=== PATIENT | female | born 1975 | race Caucasian/White ===

== ENCOUNTER 2019-07-01 10:41 | Outpatient (RCR) | payer MEDICAID, SELFPAY ==
--- NOTE | 2019-07-01 09:05 | BH.SGPN.GN ---
Behaviors/Verbalizations/Mental Status: [] Eye contact is poor. Motor activity is appropriate. Appearance is casual. Speech is Appropriate. Mood is depressed. Affect is flat. Thoughts are linear and logical. No evidence of psychosis. [place] Suicide Risk assessment completed prior to group. Client Response/Progress/Benefit: [] Pt choose not to speak during the group. Attentive at times however appeared overwhelmed with poor eye contact. Group welcomed her to the group. No progress noted as this was pt's first IOP group. Will continue in IOP to maintain safety, increase health coping, and prevent decompensation. Narrative Note: []
--- NOTE | 2019-07-01 10:15 | BH.SGPN.GN ---
Behaviors/Verbalizations/Mental Status: []Client alert and oriented, casually dressed and groomed. Eye contact fair. Motor activity appropriate. Speech within normal limits. Affect constricted, mood depressed. Thoughts linear, logical, no signs of hallucinations or delusions. Client Response/Progress/Benefit: []Pt was a passive participant throughout discussion, however appeared to listen attentively to peers. Showed increased engagement during group activity. Appeared to connect with peers definition for coping which was how we deal with problems. Group noted that coping skills can be healthy and unhealthy. Group worked together to identify unhealthy coping skills which included; substance abuse, avoiding, isolating, lashing out, self-harm, impulsive behavior, risk taking, sex, and eating. Group identified reasons people use unhealthy coping skills to include: seeking control, lack of resources, immediate gratification, past experiences, distractions, habit, easy, self-hate, trauma, and upbringing. Pt seemed to benefit from increased awareness of importance of increasing healthy coping skills and why people fall into trap of utilizing unhealthy coping skills. Pt to continue IOP level of care to maintain safety, improve emotional regulation, and prevent decompensation. Narrative Note: []
--- NOTE | 2019-07-01 11:15 | BH.SGPN.GN ---
Behaviors/Verbalizations/Mental Status: []Client alert and oriented, casually dressed and groomed. Eye contact good. Motor activity appropriate. Speech within normal limits. Affect flat, mood dysthymic. Thoughts linear, logical, no signs of hallucinations or delusions. Client Response/Progress/Benefit: []Client responded well to session, quiet, but taking notes throughout session. Client appeared to connect with the activity from second group and helped the group identify benefits of having a strong foundation of internal and external coping skills. Client helped the group discuss the different categories of coping skills which included distraction, emotional release, grounding, self-love, and thought challenging. Client listened to the examples for each and acknowledged the importance to having a variety of coping skills. Client created a coping skills ?menu? for the five categories of coping skills. Client selected cleaning and organizing, coming to therapy, listening to music, visualization, and scheduling time for herself. Client appeared to benefit from increasing her repertoire of healthy coping skills. Client?s first day of IOP. Will continue IOP tx to prevent decompensation, maintain safety, and increase mood stability. Narrative Note: []
--- NOTE | 2019-07-01 14:00 | BH.COMM_ITS ---
Communication Note - Communication with Client Communication Note: Pt to start IOP today. Due to transportation issues, h olidays, and psychiatrist schedule she will not be able to see IOP psychiatrist till 07/16/19. Pt is followed by her ouptatient psychiatrist at [facility]. Due to the severity of symptoms, frequent re-admissions, and referral by her outaptient team at [facility] for IOP it was decidned to start IOP to prevent any further decompensation and provide more intensive services especially over the holidays.
--- NOTE | 2019-07-01 14:00 | BH.COMM ---
Communication Note - Communication with Client Communication Note: Pt to start IOP today. Due to transportation issues, holidays, and psychiatrist schedule she will not be able to see IOP psychiatrist till 07/16/19. Pt is followed by her ouptatient psychiatrist at [facility]. Due to the severity of symptoms, frequent re-admissions, and referral by her outaptient team at [facility] for IOP it was decidned to start IOP to prevent any further decompensation and provide more intensive services especially over the holidays.
--- NOTE | 2019-07-01 15:43 | BH.COMM ---
Communication Note - Communication with Client Communication Note: Completed initial intake paperwork with patient. No significant changes since pre-admission screening. Worked with pt to complete CSSRS. Reports chronic daily passive suicidal ideations with vague report of potential methods via overdosing on medication, though denies specific plan or intent. Reports in the past month occasional suicidal thoughts with similar methods however no specific plan or intent. Reports only medications she has are her current prescriptions and reports willingness to refrain from purchasing any over the counter medications to maintain safety. Pt reports multiple attempts since age 13 all via overdose of medication. Indicates she does not premeditate attempts and all have been impulsive. Indicates current ability to maintain safety as she is staying with a friend and reports her friend and friend?s grandchildren are major protective factors and motivations to live. Most recent overdose attempt occurring in March 2019 in which pt was hospitalized overnight prior to transfer to inpatient psychiatric unit at [facility] and referred to [facility] program upon discharge. Denies hx of interrupted attempts, or self-injurious acts in the past 3 months. Given recent attempt in past 3 month, pt presents as high risk though is not considered to be an immediate risk or an imminent danger to herself given protective factors which include motivations to live, available supports, connection to counseling, denial of current active SI, plan, or intent, and denial of access to lethal means outside of prescribed medication in which pt reports should would not use in an attempt out of fear of usp consequences to her physical health. Hopeless and angry at current situation however is following through with treatment recommendations as requested by her religious education director and outpatient therapist indicating being future-oriented. Will continue to monitor.
--- NOTE | 2019-07-03 09:02 | BH.SGPN.GN ---
Behaviors/Verbalizations/Mental Status: [Eye contact is fair. Motor activity is appropriate. Appearance is casual, grooming appropriate. Speech is Appropriate rate and tone. Mood is anxious, depressed. Affect is constricted. Thoughts are linear and logical. No evidence of psychosis. Reviewed daily check in sheet and pt indicates SI at a rate of 1/5. Denies plan. Reports intent as 1/5. Pt is new to IOP program and therefore has not established a baseline. Pt open to checking-in with individual therapist to further assess for risk.] Client Response/Progress/Benefit: [Pt receptive of session, engaged throughout and actively listening as group members processed mental health wins and stressors. Pt opted not to share with the group as she indicated not feeling comfortable in large group settings but is working on this. Appeared to benefit from the support and structure of group environment. Progress limited given difficulties in challenging anxious thoughts impacting ability to engage in treatment. Pt recommended continued IOP tx to prevent decompensation, promote application of healthy coping skills and boundary setting, and improve mood stability. ] Narrative Note: []
--- NOTE | 2019-07-03 10:05 | BH.SGPN.GN ---
Behaviors/Verbalizations/Mental Status: []Client alert and oriented, neatly dressed and groomed. Eye contact good. Motor activity appropriate. Speech within normal limits. Affect flat, mood dysthymic. Thoughts linear, logical, no signs of hallucinations or delusions Client Response/Progress/Benefit: []Client responded well to session, quiet, but attentive and taking notes. Client connected with the topic of crisis and listened to examples of potential crises. Client nodded that anything could be a crisis based on the level of stress in a person?s life. Listened to the discussion of how coping with external crisis by using unhealthy coping skills could lead to personal crisis. Group identified unhealthy coping skills to include; isolation, overscheduling, eating too much, and sleeping too much. Group shared it is possible to prevent an external crisis from becoming an internal crisis, but it takes awareness of warning signs. Group identified warning signs for crisis which included; negative thoughts, crying uncontrollably, numbing, lack of motivation, and increased agitation. Client completed a warning signs worksheet, but she declined to share it with the group. Benefited from group by increasing awareness of crisis and personal warning signs. Will continue IOP tx to prevent decompensation, learn healthy coping skills, and improve mood stability. Narrative Note: []
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
--- NOTE | 2019-07-03 16:46 | BH.MTP ---
Master Treatment Plan - Patient Information Program Physician:: Dr. Melissa Okeefe Primary Therapist:: ADAN Scott - Psychiatric Diagnoses Psychiatric Diagnoses:: Bipolar 1 disorder, most recent episode depressed, severe without psychosis; generalized anxiety disorder; Borderline Personality Disorder - Estimated LOS Estimated LOS (in weeks):: 6 Problem/Goal #1 - Problem/Goal #1 Stated Goal:: Client will reduce depressive symptoms, suicidal ideation, feelings of hopelessness, sadness, and anhedonia through Intensive Outpatient Program. Description of Barriers: Client has various psychosocial stressors causing increased stress and impacting her ability to function at baseline. Client has a hx of toxic interpersonal relationships, specifically the relationship with her adult daughter and sister. Client is limited in levels of insight regarding mental health and struggles with application of emotion regulation skills per self-report. Additionally, client reports low self-esteem, negative thinking, poor boundaries, impulsivity, chronic passive suicidal ideation, financial strain, and cognitive distortions that exacerbate symptoms. Functional Impact: Patient is a 43-year-old female with a history of borderline personality disorder, bipolar disorder, PTSD and ERIKA who was referred by her psychiatrist at [facility] to the [facility] program in behavioral health for increasing suicidal ideation. The patient reports a long history of suicidal ideation, several previous attempts, and ongoing impulse control issues. Reports four psychiatric admits during 2019 with the most recent admit being at [facility] in April 2019. Patient currently lives in an apartment with her daughter and her daughter's boyfriend and reports this is very stressful as they do not pay rent and she does not get along well with her daughter. Reports difficulties in setting boundaries and managing emotions during times of increased conflict. Denies Active SI, plan, or intent. Pt currently endorsing symptoms of depression, isolation, hopelessness, worthlessness, and passive thoughts of going to sleep and not waking up. Additionally, indicated ruminating thoughts, irritability, and mood swings. Pt?s current sx are impacting her ability to function at baseline, as well as effecting personal, social, and occupational areas. Goal Relevant Strengths/Supports: Client is approachable, resilient, and motivated to improve her mental health sx management. - Objectives Objective #1 Stated Objective: Pt will decrease depressive symptoms AEB pt?s score on the DSM 5 cross-cutting measure and improve pt?s daily functioning. Interventions: Through groups and individual therapy, pt will be provided with education on cognitive distortions, mistaken beliefs, and identifying and combating negative self-talk. Therapist will assist pt with getting back into the activities she once enjoyed as well as increasing healthy coping strategies. Discharge Criteria: Pt will have met this goal when pt?s score on the DSM 5 cross cutting measure for depression has been decreased and per pt?s report daily functioning has improved. Target Date: 08/12/19 Review Date: 07/29/19 Objective #2 Stated Objective: Client will learn and utilize 2-3 healthy coping strategies to manage depressive symptoms and improve emotion regulation skills. Interventions: Therapist will assist client in learning internal coping strategies to manage depressive symptoms, along with helping client identify triggers. Discharge Criteria: Client will have achieved this goal when can verbalize and has practiced at least 2 healthy coping strategies. Target Date: 08/12/19 Review Date: 07/29/19 Problem/Goal #2 - Problem/Goal #2 Stated Goal:: Reduce overall frequency, intensity, and duration of the anxiety so that daily functioning is not impaired and pt no longer responds with impulsivity. Description of Barriers: Client has various psychosocial stressors causing increased stress and impacting her ability to function at baseline. Client has a hx of toxic interpersonal relationships, specifically the relationship with her adult daughter and sister. Client is limited in levels of insight regarding mental health and struggles with application of emotion regulation skills per self-report. Additionally, client reports low self-esteem, negative thinking, poor boundaries, impulsivity, chronic passive suicidal ideation, financial strain, and cognitive distortions that exacerbate symptoms. Functional Impact: Patient is a 43-year-old female with a history of borderline personality disorder, bipolar disorder, PTSD and ERIKA who was referred by her psychiatrist at [facility] to the [facility] program in behavioral health for increasing suicidal ideation. The patient reports a long history of suicidal ideation, several previous attempts, and ongoing impulse control issues. Reports four psychiatric admits during 2019 with the most recent admit being at [facility] in April 2019. Patient currently lives in an apartment with her daughter and her daughter's boyfriend and reports this is very stressful as they do not pay rent and she does not get along well with her daughter. Reports difficulties in setting boundaries and managing emotions during times of increased conflict. Denies Active SI, plan, or intent. Pt currently endorsing symptoms of depression, isolation, hopelessness, worthlessness, and passive thoughts of going to sleep and not waking up. Additionally, indicated ruminating thoughts, irritability, and mood swings. Pt?s current sx are impacting her ability to function at baseline, as well as effecting personal, social, and occupational areas. Goal Relevant Strengths/Supports: Client is approachable, resilient, and motivated to improve her mental health sx management. - Objectives Objective #1 Stated Objective: Pt will decrease anxiety symptoms AEB pt?s score on the DSM 5 cross-cutting measure and improve pt?s daily functioning. Interventions: Through groups and individual therapy, pt will be provided with education on cognitive distortions, mistaken beliefs, and identifying and combating stress. Therapist will assist pt with calming skills as well as increasing healthy coping strategies. Discharge Criteria: Pt will have met this goal when pt?s score on the DSM 5 cross cutting measure for anxiety has been decreased and per pt?s report daily functioning has improved. Target Date: 08/12/19 Review Date: 07/29/19 Objective #2 Stated Objective: Client will manage moments of increased stress and anxiety by learning to identify 2-3 warning signs and triggers for when becoming overwhelmed and implement 2-3 calming skills and problem solving strategies to realistically addressing worries. Interventions: Therapist will encourage client to use self-awareness strategies and assist client in identifying times of day, or specific thinking patterns indicating potential warning signs/triggers for increased anxiety. Therapist will teach client problem-solving strategies involving defining a problem, brainstorming solutions, selecting and implementing various solutions as well as calming interventions for reducing anxiety. Discharge Criteria: Client will have met this goal when can identify at least 2 warning signs and 2 triggers for increased stress and anxiety. When recognizing warning signs pt will be able to implement 2-3 problem solving and calming strategies for reducing anxiety and realistically addressing worries. Target Date: 08/12/19 Review Date: 07/29/19 Objective #3 Stated Objective: Client will learn and implement 2-3 effective communication skills during times of conflict to empower client to communicate thoughts and feelings rather than suppress emotions or escalate to crisis. Interventions: Therapist will teach client effective communication and conflict resolution skills and will provide homework for client to practice communication skills outside of sessions. Therapist will work with pt to engage his supports in tx process through completion of family/support session. Discharge Criteria: Client will have achieved this objective when reports experiencing increased ability to communicate effectively with supports during times of disagreement or conflict without shutting down or escalating to point of crisis. Target Date: 08/12/19 Review Date: 07/29/19
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
--- NOTE | 2019-07-04 09:41 | BH.COMM ---
Communication Note - Communication with Client Communication Note: Pt to start IOP today. Due to transportation issues, holidays, and psychiatrist schedule she will not be able to see IOP psychiatrist till 07/16/19. Pt is followed by her ouptatient psychiatrist at [facility]. Due to the severity of symptoms, frequent re-admissions, and referral by her outaptient team at [facility] for IOP it was decidned to start IOP to prevent any further decompensation and provide more intensive services especially over the holidays.
--- NOTE | 2019-07-04 15:38 | BH.COMM_ITS ---
Communication Note - Communication with Client Communication Note: Cancelled IOP through transportation this AM. No reason given. Unable to contact as pt currently has not phone. Informed pt's protective services case worker of cancellation and upcoming appt for IOP on 07/07/19
--- NOTE | 2019-07-07 09:05 | BH.SGPN.GN ---
Behaviors/Verbalizations/Mental Status: [ Eye contact is good. Motor activity is appropriate. Appearance is casual, grooming appropriate. Speech is Appropriate rate and tone. Mood is agitated, depressed. Affect is congruent. Thoughts are linear and logical. No evidence of psychosis. Reviewed daily check in sheet and pt reports SI at a rate of 1/5, denies plan, and indicates intent as a 1/5 as of this date. Per pt, this is consistent with her baseline. Pt reports willingness to follow-up with this therapist to further assess for risk.] Client Response/Progress/Benefit: [Pt receptive to session, mostly a passive participant but willing to process with the group when encouraged by therapist. Pt indicated current emotion as ?overwhelmed? and discussed that this is due to stress related to her current living situation and expressed ?the weekend was very stressful?. Declined to share further but appeared to benefit from supportive feedback provided by group AEB nodding and expressing connecting to others. Pt progress limited given difficulties in engaging in group discussion and report of ongoing mental health sx. Pt recommended continued IOP tx to prevent decompensation, promote ongoing application of healthy coping skills, and further improve emotion regulation.] Narrative Note: []
--- NOTE | 2019-07-07 09:14 | BH.NA_ITS ---
Physical Data - Vital Signs Temperature: 98.0 F Pulse Rate: 76 Respiratory Rate: 18 Blood Pressure: 132/80 - Height/Weight Height: 1.63 m Weight:: 120.202 kg Weight in Pounds: 265.0 lbs Current Medication Compliance - Medication Compliance Do you take your medication as prescribed?: Yes Nutritional History - Appetite Nutritional Instructions:: If client shows signs of a swallowing problem, weight change of 10 pounds or more in the last month, or is on a diabetic diet, the physician will review and request a dietitian consult, as appropriate. All unintentional weight loss will be referred to the physician for decision on need for dietitian consult. Describe your appetite:: Good Have you noticed a change in your eating habits lately?: No Functional Assessment - Sleep Pattern Describe any problems with sleeping: Client states she has been sleeping a lot. Client states she was only awake yesterday for about 3 hours, states she slept the rest of the day. Client says she sleeps as much as possible to cope. - Activities Motor Activity:: Functional Sensory/Communication Assess - Communication Problems Do you have difficulty understanding what people are saying?: No Medical Problems/History - Cardiac Conditions Cardiovascular: Hypertension - Gastrointestinal Conditions Gastrointestinal: Other (See comments) Comments:: GERD, irritable bowel syndrome - Musculoskeletal Conditions Musculoskeletal: Arthritis Surgical History - Surgical History Have you had any surgeries? If so, list type and date:: Yes - 4 back surgeries, right ankle, left knee scope, parital hysterectomy Substance Abuse - Substance Abuse Please describe substance abuse in the last 30 days:: Client denies all past or present alcohol, tobacco, or drug use when asked. Mental Status Summary - Mental Status Significant Findings/Observations on Appearance and Mood:: Client alert and oriented x 4. Client casually groomed. Client cooperative with assessment but with flat affect. Client with fair eye contact during assessment and voice rate and volume normal. Client's speech clear and coherent, sometimes rapid at times. Client appears moderately depressed and mildly anxious. Client with normal processing during conversation. Client denies delusions or hallucinations. Client states she often has passive suicidal thoughts but not action plan, but states she is a very impulsive person. Client has good attention and concentration during assessment. Suicide Assessment - Suicidal Ideation Are you currently or have you been suicidal in the past?: Yes - client states she has passive suicidal thoughts a lot Suicidal Intentional Rating Scale (SIRS): Suicidal thoughts (past) - Client states she has suidical thoughts a lot but has no active plan. This nurse discussed client's response with client's therapist, Anita., Current suicidal thoughts/No plan/Contracts for safety Physician Notification: If Active suicidal thoughts/Will not contract for safety is checked, contact physician and document in the Physician Notification section below. Past Psychiatric History - MH Treatment Hx Past Psychiatric Medications:: Depakote- client states she had to be taken off of it due to high liver enzymes. Client also states with her current Seroquel, she has had some high blood sugars and had some hemoglobin A1C checks with her primary care doctor in the past. Client does not remember any lab values. Age of first mental health symptoms: Client very vague when asked about her history of depression and bipolar, states she has had them for years. When asked if more than 5-10 years, client states yes. Client also states she has some kind of personality disorder but states I don't remember what it's called exactly. Describe (age, circumstance, etc) any past hospitalizations: Client was hospitalized at [facility] in March 2019. When asked if client has had other hospitalizations, client states a lot. Client unable to give number of hospitalizations. When asked if client has had other hospitalizations this year, client states a lot. Client does state all her hospitalizations have been because of suicidal attempts. Current providers for mental health treatment (counselor, psychiatrist, nurse case management, etc.): Client goes to [facility] in [place] for counseling, psychiatry, and has a showcase maker. Fall Risk Assessment - Age Age: Less than 60 - Mental Status Mental Status: Willing & able to ask for assistance when needed - Physical Status Physical Status: No problems - Impairments Impairments: None - Elimination Elimination: Continent AND independent - Gait or Balance Gait or Balance: Walks independently - Hx of Falls History of falls in the past 6 months: No known history - Medications/Substances Psychotropics:: Antidepressants, Antipsychotics, Antihistamines (e.g. Benadryl) Medications/substances used within the past 24 hours or ordered to administer: 3 or more of the medications/substances listed above - Total Score Total Points:: 2 RN Summary of Impressions - Impressions Recommendations: Include psychiatric and medical issues, treatment planning recommendations, and discharge planning needs. Impressions: Psychiatric Issues: Client states history of depression, PTSD, bipolar, and states a personality disorder but unsure what - Level of Care How do the client's current symptoms and functional deficits support need for this level of care?: Client was hospitalized in March 2019 for suicide attempt. Client vague about the onset of symptoms that lead to hospitalization, client states she has been hospitalized a lot and states she struggles with depression on a daily basis. Client states she is trying to sleep all the time to avoid coping with her problems. Client states she has feelings of anhedonia, feelings of being overwhelmed, irritability. Client states that her current stressors are her relationship with her daughter, financial concerns, lack of having her own phone. Client states she has passive SI often, but states she does not have a plan. Client with mostly flat affect during conversation. IOP will promote gains and prevent further decompensation while providing social support and skills training.
[2019-07-07 10:16] VITALS: BP 132/80; PULSE 76; RESP 18; TEMP 36.7
--- NOTE | 2019-07-07 11:15 | BH.SGPN.GN ---
Behaviors/Verbalizations/Mental Status: []Client alert and oriented, neatly dressed and groomed. Eye contact fair. Motor activity appropriate. Speech within normal limits. Affect flat, mood depressed. Thoughts linear, logical, no signs of hallucinations or delusions. Client Response/Progress/Benefit: []Client willing to participate in activity and provided some input during discussion. Client did well to work with the group and actively listen as others provided suggestions/feedback. Client agreed with peers that the group?s attitude toward the activity negatively impacted their ability to succeed. Client engaged in discussion reviewing positive and negative forces impacting life and mental wellness. Client identified personal positive forces that aid in progressing toward mental health goals include: babysitting which gives client a purpose, her supports, and client?s willingness to learn. Client indicated personal negative forces to include: lack of impulse control, low self-esteem, and difficulty managing mental health symptoms. Client seemed to benefit from increased awareness of personal positive and negative forces in life and impact they have on mental health and wellness. Client to continue IOP level of care to prevent decompensation of depressive symptoms and to increase emotional regulation skills. Narrative Note: []
--- NOTE | 2019-07-07 11:15 | BH.SGPN.GN ---
Behaviors/Verbalizations/Mental Status: []Eye contact is poor. Motor activity is appropriate. Appearance is casual. Speech is Appropriate. Mood is depressed. Affect is flat. Thoughts are linear and logical. No evidence of psychosis. Client Response/Progress/Benefit: []Pt was a passive participant in group as evidenced by pt providing no input during group discussion, however appeared to attentively listen to others. Group worked together to come up with common negative forces in their lives which can hold them back from growth. Negative forces included: toxic relationships, negative thoughts, low motivation, and poor boundaries. Group then worked together to identify common positive forces which help us grow. Theses included: Healthy coping skills, positive support, self-care, positive self-talk and challenging negative thoughts. Pt was attentive during psychoeducation on the importance of utilizing many aspects of positive forces to help one grow. Benefited from group with increased insight and awareness on the impact of negative and positive forces on mental wellness. Pt to continue IOP to maintain safety, improve emotional regulation, and prevent decompensation.
--- NOTE | 2019-07-07 12:34 | BH.COMM ---
Communication Note - Communication with Client Communication Note: Therapist met with pt to check-in as pt had indicated SI at a rate of 1/5 and intent at 1/5 when filling out her daily symptom tracker this morning. Pt indicates chronic passive SI but denies active SI, plan, or intent. Reports increase in stress related to ongoing tension in her relationship with her daughter. Indicated that this has impacted current SI levels but that she is not a risk to herself and feels able to maintain safety at this time. Future oriented and reports plans to attend group tomorrow. Is aware of crisis resources available and willing to reach out for if no longer feeling capable of maintaining safety.
--- NOTE | 2019-07-08 09:02 | BH.SGPN.GN ---
Behaviors/Verbalizations/Mental Status: []Client alert and oriented, casually dressed and groomed. Eye contact fair. Motor activity appropriate. Speech within normal limits. Affect flat, mood dysthymic. Thoughts linear, logical, no signs of hallucinations or delusions. Reviewed client?s symptom tracker, client had 3/5 for thoughts of suicide and 1/5 for risk for suicide. Client will meet with her individual therapist today and client will further be assessed for safety. Client Response/Progress/Benefit: []Client responded somewhat well to session, quiet, but attentive and listening to peers. Client declined to share during her check-in. Client appeared depressed and withdrawn. Client?s individual therapist will be informed of client?s mood and symptom tracker score. Appeared to benefit from coming to group today rather than isolating. Will continue IOP tx to prevent further decompensation and increase emotional regulation skills.? Narrative Note: []
--- NOTE | 2019-07-08 10:17 | BH.SGPN.GN ---
Behaviors/Verbalizations/Mental Status: []Eye contact is good. Motor activity is appropriate. Appearance is casual. Speech is Appropriate. Mood is dysthymic. Affect is constricted. Thoughts are linear and logical. No evidence of psychosis. Client Response/Progress/Benefit: []Participated throughout group discussions AEB taking notes and listening actively. Engaged during psychoeducation portion reviewing fixed mindset and willing to ask for clarification as needed. Expressed relating to the examples provided by fellow participants throughout. Pt worked with group to identify how a fixed mindset can impact mental health which included: decreased hope, giving up when faced with a setback, not asking for help, low self-esteem, and isolation/avoidance. Pt identified one fixed thought she has as ?things are never going to get better? and ?I can?t do this?. She did well to note the impact of this thought and indicated it makes her doubt her self-worth, impacts her willingness to communicate with supports, and leads to hopelessness. Recognized that this fixed thought results in maintaining symptoms of depression and has led to isolation in the past. Benefited from group by increasing awareness of how one's mindset impacts mental health. Pt to continue IOP level of care to increase utilization of healthy coping skills, challenge distorted thoughts, and prevent decompensation. Narrative Note: []
--- NOTE | 2019-07-08 23:14 | BH.MDN ---
Multi-Disciplinary Note - Note 45-min Individual Time Started:: 11:36 Date: 07/08/19 Purpose of session/treatment goals addressed:: Purpose of this session was to assess for risk and safety plan with pt as therapist was informed that pt had indicated increased suicidal ideation during process group. Eye Contact:: Good Motor Activity:: Appropriate Appearance:: Casual Speech:: Appropriate Mood:: Irritable, Depressed Affect:: Congruent Thoughts:: Linear, Logical, No evidence of hallucinations/delusions noted Staff Interventions:: Therapist asked open-ended and furthering questions to elicit information regarding pt current sx and stressors resulting in increase in mental health sx. Gave supportive feedback and empathic responses as pt process current frustrations. Completed Suicide Risk assessment and assessed fr current risk and protective factors. Aided pt in completing a safety plan for the and implemented DC techniques to promote healthy change behaviors. Client Response:: Pt receptive of session, indicated feeling overwhelmed and agitated on this date. Noted that she had expressed increased suicidal ideation during process group more out of frustration and feeling overwhelmed, than actual suicidal thoughts. Pt expressed ?I don?t really want to ?really I just want to take a bunch of pills to sleep so that I?ll feel better in the morning?. Receptive of discussion regarding potential consequences of doing so on her mental and physical health. Able to identify that sleep will temporarily numb her from current stressors/frustrations but not resolve the actual issues. Shared current stressors as ongoing tension in the relationship with her daughter whom is 19. Pt shared that they struggle to communicate without conflict despite caring for one another. Discussed stress related to finances and her daughter not working. Pt able to work with therapist to further identify strategies for managing current frustrations so as to prevent crisis escalation. Pt shared normally she would spend time with her best friend Jo, however Jo is currently out of town for the Holidays. Indicated that she knows the relationship with her daughter is often toxic but struggles to set boundaries. Willing to create a safety plan for the New and pt identified finding time to spend away from her daughter and practice selfcare would be beneficial. Shared plans to go to a separate room in the house and listen to music and clean. Pt notes ability to maintain safety and is looking forward to as her friend and their grandchildren will be home from vacation. Reports plans to attend group on , 07/10/18. Risks/Concerns:: Pt reporting increased SI during process group on this date. Noted SI as a 3/5 and current intent to be a 1/5. Upon further assessment however, pt denies active SI, plan, or ntent. Reports passive thoughts of taking pills to sleep but denies desire to do so with intent of self-harm. Willing to safety plan and reports ability to maintain safety. Future oriented. Progress Toward Goals/Plan:: Some regression. Pt reporting increased mood dysregulation due to external stressor of her daughter staying with her. Shared that she is overwhelmed and struggling to maintain calm or prevent from engaging in a physical altercation or impulsive or self harming behaviors. Appears to focus on external locus of control which may be impacting her current progress and ability to cope with stressors. Reports ability to maintain safety and able to identify some insight regarding how current thoughts and behaviors maintain mental health state and depression. Pt recommended continue IOP tx to maintain safety, promote application of distress tolerance skills, and prevent decompensation. Time Stopped:: 12:35
--- NOTE | 2019-07-10 23:24 | BH.COMM_ITS ---
Communication Note - Communication with Client Communication Note: Pt in attendance for IOP group on this date and indicated doing well. This was further evidenced by decreased reports of suicidal ideation on this date, as pt indicated scores as 1/5 compared to previous session in which it was 3/5. Additionally reports future orientation as she plans to spend the evening with her bestfriend. However, prior to leaving group for the day, pt handed financial accounting analyst a note for this therapist. Note indicated that pt has been st ruggling with impulsive thoughts and has been counting pills; however, note was vauge and did not indicate current SI or whether this is an active plan. Due to lack of clarity of ideation and intent, as well as inabilty to contact client or her leather case finisher at [facility] police dept was contacted to complete a safety check.
--- NOTE | 2019-07-10 23:54 | BH.COMM_ITS ---
Communication Note - Communication with Client Communication Note: Pt Printed [employer] Layout Taper from [facility] contacted this therapist to discuss pt's mental health tx history and tx goals. Discussed plans to meet with pt on this date to further assess risk. Will follow-up with this therapist regarding any concerns
--- NOTE | 2019-07-14 16:49 | BH.COMM_ITS ---
Communication Note - Communication with Client Communication Note: Therapist met with pt to check-in as pt had indicated SI at a rate of 2/5 and intent at 2/5 when filling out her daily symptom tracker this morning. Pt indicates chronic passive SI but denies active SI, plan, or intent. Unable to identify baseline and indicates it's always all over the place. Noted that if she has increased SI during process group she will let individual therapist know if she is able to maintain safety. Reports ongoing stress rela marivel to her relationship with her daughter and difficulty in setting boundaries. Additional stressor as finances; however, pt has additional protective factor compared with prior week as her close friend whom pt often stays with is back in town. Indicated that she is not a risk to herself and feels able to maintain safety at this time. Future oriented and reports plans to spend time with friend this evening. Is aware of crisis resources available and willing to reach out for if no longer feeling capable of maintaining safety.
== END 2019-07-08 23:59 ==
LOC: BHIOP 10:41
PROVIDERS: Family Provider Internal Medicine; PCP Internal Medicine; Referring Provider Psychiatry & Neurology Psychiatry; Visit Provider Psychiatry & Neurology Psychiatry
DX: F32.2 Major depressive disorder, single episode, severe without psychotic features (principal); F41.1 Generalized anxiety disorder; F60.3 Borderline personality disorder
CPT/HCPCS: H0035; H2012; H2020; T1002; 90834; 90837

== ENCOUNTER 2019-07-10 09:00 | Outpatient (RCR) | payer MEDICAID, SELFPAY ==
[2019-07-09 01:09] VITALS: BP 132/80; PULSE 76; RESP 18; TEMP 36.7
--- NOTE | 2019-07-10 09:03 | BH.SGPN.GN ---
Behaviors/Verbalizations/Mental Status: []Client alert and oriented, casually dressed and groomed. Eye contact good. Motor activity appropriate. Speech within normal limits. Affect constricted, mood depressed and anxious. Thoughts linear, logical, no signs of hallucinations or delusions. Client Response/Progress/Benefit: []Pt was an engaged participant in group discussion. Emotion for today is overwhelmed. 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 Pt reported another positive was getting a phone call from one of sons on [place] who told her he loved her. Pt stated she had been struggling badly on [employer] until she talked with her support people. 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 Pt reported prior to talking with supports she was having impulsive thoughts. Pt stated current stressor is finding out her daughter is . Progress could be hindered AEB pt's mood is dependent on external situations and people. Continued IOP tx recommended to maintain safety, improve emotional regulation and prevent decompensation. Narrative Note: []
--- NOTE | 2019-07-10 10:05 | BH.SGPN.GN ---
Behaviors/Verbalizations/Mental Status: []Client alert and oriented, neatly dressed and groomed. Eye contact good. Motor activity appropriate. Speech within normal limits. Affect flat, mood dysthymic. Thoughts linear, logical, no signs of hallucinations or delusions. Client Response/Progress/Benefit: []Client was an active participant throughout session, contributing to discussion and taking notes. Commented on the quote sharing paying attention to each step made towards progress ?can make you see you aren?t where you started.? Group worked together to define goals and identify the benefits of developing goals which included: increase confidence, seeing progress, reducing black and white thinking, and sense of purpose. Client shared for her goal setting means having something to look forward to. Group also discussed short-term and long-term goals as well as the benefits of the two types. Attentive and contributing during education on developing SMART goals. Benefited from increase awareness of goal-setting methods. Will continue in IOP to prevent decompensation, improve emotional regulation, and maintain safety. Narrative Note: []
--- NOTE | 2019-07-10 11:10 | BH.SGPN.GN ---
Behaviors/Verbalizations/Mental Status: [Client alert and oriented, casually dressed and appropriately groomed. Eye contact good. Motor activity appropriate. Speech within normal limits. Affect congruent, mood agitated and depressed. Thoughts linear, logical, no signs of hallucinations or delusions.] Client Response/Progress/Benefit: [Pt attentive throughout, contributed some thoughts to discussion which indicates progress. Reported relating to materials discussed and engaged in creating own mental health SMART goal. Pt identified goal is to challenge herself to stay in the same room as others for at least 30 minutes 2x daily over the next week. Pt reported this goal as beneficial by improving relationships and decreasing isolation. Pt identified potential barriers to accomplishing goal to include: ?my own mind overrides the positives?. Pt reported she will overcome barriers by engaging in positive self-talk at least twice a day. Seemed to benefit from identifying a SMART goal and coming up with strategies to overcome potential barriers. Pt to continue IOP to increase healthy coping skills, improve emotional regulation and depression management, and prevent decompensation.] Narrative Note: []
--- NOTE | 2019-07-14 09:03 | BH.SGPN.GN ---
Behaviors/Verbalizations/Mental Status: []Client alert and oriented, neatly dressed and groomed. Eye contact good. Motor activity appropriate. Speech within normal limits. Affect flat, mood depressed Thoughts linear, logical, no signs of hallucinations or delusions. Reviewed client?s symptom tracker. Client had 2/5 for thoughts of suicide and 2/5 for risk of suicide. Client's scores were within client's baseline and client was future oriented throughout session. Client Response/Progress/Benefit: [] Client responded well to session, quiet at first, but then participating when prompted. Client reports feeling overwhelmed today due to ongoing stressors with her daughter. Client and her daughter have a history of a turbulent relationship and client shared we need to figure things out. Client shared she is also stressed about money today. 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 Appeared to benefit from connecting with peers and reflecting on the positive from her weekend. Progress is variable based on the day/week as client's mood often correlates with external situations. Will continue IOP tx to prevent decompensation and increase the use of internal coping skills. Narrative Note: []
--- NOTE | 2019-07-14 10:17 | BH.SGPN.GN ---
Behaviors/Verbalizations/Mental Status: [Client alert and oriented, casually dressed and groomed. Eye contact fair to good. Motor activity appropriate. Speech within normal limits. Affect congruent, mood agitated, depressed. Thoughts linear, logical, no signs of hallucinations or delusions. ] Client Response/Progress/Benefit: [Client a semi-active participant AEB engagement in group activity and providing some input during discussion portion of session, though remaining mostly passive during discussion portion. Actively listening and taking notes throughout. Client worked with group to define resilience, indicating agreement with definition provided by fellow participants. Client able to make connections between activity and barriers/supports to development of a resilient lifestyle. Client agreed with peers that one can learn to become more resilient throughout life. Client able to work with group to discuss benefits of resilience on mental health which included: increased self-confidence, increased ability to manage adversity, and increased ability to find different solutions to setbacks. Progress in willingness to work in small groups to identify benefits of resilience, as well as improved ability to identify self-sabotaging behaviors and reach out to supports for help. Recommended continued IOP tx to maintain safety, promote healthy change behaviors, improve insight and mental health sx management, as well as prevent decompensation.] Narrative Note: []
--- NOTE | 2019-07-16 10:20 | BH.SGPN.GN ---
Behaviors/Verbalizations/Mental Status: [Client alert and oriented, casually dressed and groomed. Eye contact fair to good. Motor activity appropriate. Speech within normal limits. Affect congruent to topic being discussed, mood irritable, depressed. Thoughts linear, logical, no signs of hallucinations or delusions.] Client Response/Progress/Benefit: []Pt mostly passive participant though attentive participant AEB pt taking notes and actively listening throughout. Pt able to connect with discussion on the negative impact of defining self by mental illness. She discussed struggling with viewing herself in a negative light as a result of the language she has heard surrounding mental illness. Group identified social stigma can come from how the media, our thoughts, and upbringing portray mental illness. Group identified media and society portray mental health as: dangerous, negative, unworthy, abnormal, and that it means something is wrong with you. Pt reported societal stigma made her feel worthless and resulted in not seeking help when needed. Pt seemed to benefit from increased awareness of how societal and internal mental health stigma can impact functioning. Pt progressing with increased input in group though continues to struggle with skill application outside of tx environment. Pt to continue IOP level of care to continue use of healthy coping skills, reduce mental health sx severity, and prevent decompensation. Narrative Note: []
--- NOTE | 2019-07-16 11:20 | BH.SGPN.GN ---
Behaviors/Verbalizations/Mental Status: []Client alert and oriented, casually dressed and groomed. Eye contact fair. Motor activity restless. Speech within normal limits. Affect constricted, mood depressed. Thoughts linear, logical, no signs of hallucinations or delusions. Client Response/Progress/Benefit: []Client passive participant AEB pt providing limited input however appeared to actively listen to others throughout session. Engaged in activity about facts and statistics of mental illness. Group identified the benefits of addressing stigma which included: increased self-confidence, takes some of the power away from stigma, increases personal and social awareness, and increases validation. Group brainstormed strategies to combat social and perceived stigma which included: education others, no longer using negative labels about mental illness, being open about mental health, and don't reinforce stigma. Client seemed to connect with strategy of talking about mental illness openly with others as a way to reduce mental health stigma. Appeared to benefit from increasing awareness of strategies to combat stigma. Will continue IOP tx to increase consistent application of coping skills, improve emotional regulation, and prevent decompensation. Narrative Note: []
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
--- NOTE | 2019-07-16 13:27 | BH.PSY.EVA_ITS ---
Initial Treatment Plan - Patient Information Visit Information: ADMISSION DATE: EXPECTED LOS: 4-6 weeks - Problems/Symptoms Problem #1:: Depression Symptom:: sadness, suicidal ideation, hypersomnia, fatigue, hopelessness, worth lessness, anhedonia Problem #2:: Impulsivity and distress intolerance Symptom:: Self-harm, chronic suicidal ideation and attempts Problem #3:: Anxiety
--- NOTE | 2019-07-16 16:06 | BH.MDN_ITS ---
Multi-Disciplinary Note - Note 30-min Individual Time Started:: 09:45 Date: 07/16/19 Purpose of session/treatment goals addressed:: The purpose of today's session was to assess current symptoms, stressors, and treatment goal progress. Another purpose was to aid pt in identifying heathy communication and conflict resolution skills to address concerns impacting current mental health status. Eye Contact:: Good Motor Activity:: Appropriate Appearance:: Casual Speech:: Appropriate Mood:: Irritable, Depressed Affect:: Congruent Thoughts:: Linear, Logical, No evidence of hallucinations/delusions noted Staff Interventions:: Therapist asked open-ended and furthering questions to elicit information regarding current symptoms, stressors, and tx goal progress. Provided supportive feedback and empathic responses as client discussed recent stressors, desires to engage in safety behaviors, and anxieties about communicating concerns with her supports. Discussed conflict resolution skills and prs/cons of communicating vs. avoidance. Therapist applied PA techniques to promote healthy change behaviors. Client Response:: Pt receptive of session, actively engaged throughout and openly discussed current stressors impacting mental health and treatment progress. She indicated that her friend Jo, whom she has been staying with, informed her on Sunday that pt may not be able to stay there any longer for financial reasons. Pt shared that this felt unexpected and ?out of the blue?, indicating that she would be willing to help with some of the financial obligations should she be able to remain in the house. Pt currently has her own apartment which she pays for but pt?s daughter and her daughter?s fianc? live there and pt often reports tension between she and her daughter. Shared feeling her mental health would decline if she were to live with her daughter all the time but feels she cannot kick her daughter out as she is and not currently working, therefor would not be able to provide for herself. Pt receptive on discussing boundaries and ways to support her daughter without taking on her responsibilities. Pt shared anxiety about further discussing living arrangements with her friends as the topic has not been brought up since Sunday and pt fears if she were to bring it up her friend would follow through on kicking her out. Pt able to identify consequences of avoiding on her friendship and mental health as well as benefits of discussing this with her supports and problem solving solutions for ensuring she is supported while still respecting the boundaries and needs of her supports. Reports plans to re- approach the topic this afternoon. Risks/Concerns:: No risks or concerns noted. Pt denies any active SI, plan, or intent as of this date, 07/16/18. She is future oriented and willing to reach out to crisis should she feel unable to maintain safety at anytime. Progress Toward Goals/Plan:: Progress noted. Pt continues to indicate difficulties in overall ability to manage mental health triggers and often struggles in externalization of stressors; however, has done well to increase awareness of doing so. Additionally, pt continues to report chronic passive SI when feeling overwhelmed and often uses sleeping and avoidance to prevent dealing with current stressors; however, she was able to additionally identify impact of avoidance on reinforcing anxiety and sx of depression. Reports willingness to discuss concerns with her supports despite anxiety about doing so and noted willingness to discuss boundaries with her daughter. Reported ability to maintain safety today which is an additional area of progress as pt often struggles to recognize ways to cope on her own. Continues to report mood instability and feeling exhausted due to current stressors. Recommended continued IOP tx to improve mood stability, increase healthy communication and conflict resolution, and prevent decompensation.
--- NOTE | 2019-07-21 09:05 | BH.SGPN.GN ---
Behaviors/Verbalizations/Mental Status: []Client alert and oriented, casual dress, hygiene tended to. Eye contact good. Motor activity appropriate. Speech within normal limits. Affect constricted, mood dysthymic. Thoughts linear, logical, no signs of hallucinations or delusions. Reviewed client?s symptom tracker, no signs of suicidal ideation, plan, or intent as of today. Client Response/Progress/Benefit: []Patient responded well to session as evidenced by openly sharing thoughts and feelings and attentive to others. Pt reported this weekend she babysit which she stated was a great time. Pt stated additional mental health positive was spending time with her daughter and being able to get along. Pt reported often times when she is around her daughter it results in a fight. Pt reported she is currently stressed because can't get ahold of her land lord due to losing her phone number. Pt receptive to ideas about how to reach her landlord. Pt progress is variable due to her mood often being determined about external events in her life. Pt to continue IOP to improve emotional regulation, improve healthy coping and prevent decompensation. Narrative Note: []
--- NOTE | 2019-07-21 10:20 | BH.SGPN.GN ---
Behaviors/Verbalizations/Mental Status: []Eye contact is good. Motor activity is appropriate. Appearance is casual. Speech is Appropriate. Mood is depressed. Affect is flat. Thoughts are linear and logical. No evidence of psychosis. Client Response/Progress/Benefit: []Client was an active participant in group activity and attentive during discussion. Client often nodding to comments made by peers and taking notes. Group identified several definitions of pitfalls which included; engaging in choices that keep us stuck, unexpected dangers, and unforeseen difficulty. The group discussed the consequences of continuing to fall into pitfalls or not address pitfalls which included; use of unhealthy coping skills, increased mental health symptoms, and loss of employment or relationships. Client stated ignoring warning signs and pitfalls can lead to hospitalization. Attentive during psychoeducation on the vicious cycle that can occur if one does not cope in healthy ways. Group worked together to identify what keeps us stuck or vulnerable to pitfalls which included; lack of resources, stigma, feeling uncomfortable, it is hard to go against the norm, and difficulty seeing the big picture. Benefited from increased awareness on the impact that pitfalls can have on mental health. Progress noted in client?s report of mood stability over the weekend. However, client continues to struggle with applying internal coping skills and client often relies on external support for emotional regulation. Will continue IOP tx to prevent decompensation and improve emotional regulation skills. Narrative Note: []
--- NOTE | 2019-07-21 11:21 | BH.SGPN.GN ---
Behaviors/Verbalizations/Mental Status: [Client alert and oriented, casually dressed and groomed. Eye contact good. Motor activity appropriate. Speech within normal limits. Affect congruent, mood anxious, dysthymic. Thoughts linear, logical, no signs of hallucinations or delusions.] Client Response/Progress/Benefit: []Client receptive of session, engaged throughout AEB client actively listening during discussion and taking notes. Listened and processed activity with group and connected it to overcoming personal pitfalls in life. Client completed a worksheet where pt identified personal pitfalls impacting mental health progress. Identified pitfalls as: impulsivity, communication, giving up, self-hate, depression, poor boundaries, and loneliness. Client agreed that with awareness and use of healthy coping skills, it is possible to prevent or better manage pitfalls. Discussed this has been difficult for her lately due to negative thoughts and feeling unsupported by others. Shared wanting to work on this area. Attentive during psychoeducation on strategies to overcome pitfalls. Client stated she will work on pitfall of impulsivity by reaching out and speaking to someone before reacting. Benefited from identifying personal pitfalls and strategies to overcome these pitfalls, as well as support provided by group. Progress noted as client reported improved mood on this date. Will continue IOP tx to reduce depression, promote healthy change behaviors, and prevent decompensation. Narrative Note: []
--- NOTE | 2019-07-22 11:39 | BH.MDN_ITS ---
Multi-Disciplinary Note - Note 60-min Individual Time Started:: 09:21 Date: 07/22/19 Purpose of session/treatment goals addressed:: The purpose of this session was to assess current symptoms, stressors, and treatment progress. Another purpose was to address factors impacting pt overall self-worth. Additional topics included: boundaries and self-care Eye Contact:: Good Motor Activity:: Appropriate Appearance:: Casual Speech:: Appropriate Mood:: Depressed Affect:: Congruent Thoughts:: Linear, Logical, No evidence of hallucinations/delusions noted Staff Interventions:: Therapist asked open ended and furthering questions to elicit information regarding client current symptoms, stressors, and treatment history. Provided supportive feedback and empathic responses as client discussed current stressors impacting mental health symptoms. Aided pt in identifying and challenging negative self-talk messages. Used WI techniques to promote healthy change behaviors and aid Pt in identifying self-talk messages to improve sense of self-worth. Continued to provide education on importance of boundary setting in maintaining self-care. Client Response:: Client was receptive of meeting with this therapist and remained engaged throughout session, openly discussing thoughts, feelings, and concerns. Pt shared feeling ?exhausted and drained? on this date. Indicated that this is due to ongoing difficulties in setting boundaries with her daughter, as well as being given additional responsibilities while staying with her friend, Jo, without her knowledge. Pt indicated that her friend had assumed pt would watch the grandchildren without first consulting pt. Expressed feeling disrespected and taken advantage of but was able to sit down and discuss concerns with her friend without it becoming an additional stressor. Pt expresse d this was progress as she sometimes worries about addressing concerns with her friend out of fear of being kicked out of the house. Pt and therapist discussed impact of her current boundaries on her mental health and ability to implement self-care. Shared insight that she takes on other?s problems and spends time caring for other?s responsibilities that she does not give herself any time for self-care. Able to identify the impact this has had on maintaining depression, however continues to indicate not knowing or feeling she deserves to spend time on herself. Willing to work with therapist on challenging distortions related to negative image of self. Pt reports believing she has never told herself an affirmational statement as she was not taught to say kind things to herself. Shared struggling to identify things she likes about herself outside of care for others. Pt expressed wanting to begin improving her self-talk willingness to begin implementing at least on affirmation daily. Risks/Concerns:: No risks or concerns noted. Pt continues to report chronic, passive thoughts of wanting to sleep and not wake up; however, denies any active SI, plan, or intent as of this date. 07/22/19. Future oriented and reports an ability to maintain safety at this time. Progress Toward Goals/Plan:: Limited progress noted. Pt shared increased insight into her own mental health symptoms, specifically impact of poor boundaries and negative self-talk statements on maintaining depression however continues to externalize factors impacting her mental health. Discussed increased difficulty in managing emotions due to poor boundaries and taking on other?s responsibilities. Is able to recognize this but struggles with implementing identified boundary setting skills. Noted that she continues to struggle with agitation, depression, and ongoing difficulties with distorted thinking patterns and communicating with supports. Is more open to begin working on improving thought challenging and use of self-care. Recommended continued IOP tx to reduce sx severity, increase healthy skill application, and prevent decompensation. Time Stopped:: 10:22
--- NOTE | 2019-07-24 09:05 | BH.SGPN.GN ---
Behaviors/Verbalizations/Mental Status: [] Eye contact is good. Motor activity is appropriate. Appearance is casual. Speech is Appropriate. Mood is depressed. Affect is flat. Thoughts are linear and logical. No evidence of psychosis. Reviewed daily check in sheet and pt reports 2/5 for suicidal ideations and 1/5 for intent. Therapist notified and this is pt's baseline. Client Response/Progress/Benefit: [] Pt did not participate in group discussion and declined to share. Daily symptoms notes 4/5 for anxiety, 3/5 for panic, 2/5 for hopelessness. She was attentive at times AEB by eye contact and nodding however again choose not to engage or share. Limited benefit from group due to limited engagement. Will continue in IOP to maintain safety, prevent decompensation, and increase healthy communication and skills. Narrative Note: []
--- NOTE | 2019-07-24 10:10 | BH.SGPN.GN ---
Behaviors/Verbalizations/Mental Status: []Client alert and oriented, casually dressed and groomed. Eye contact good. Motor activity appropriate. Speech within normal limits. Affect flat, mood depressed. Thoughts linear, logical, no signs of hallucinations or delusions. Client Response/Progress/Benefit: []Client active participant during group AEB client contributing to discussion and making connections throughout. Client shared supports are not always easy to access, but they are important to have for mental health wellness. Client helped group brainstorm potential consequences of not having a support system and barriers to developing social supports, which included: feeling like a burden, shame, pride, anxiety, and lack of resources. Group identified benefits of social support as increased confidence, less stress, and improved relationships. Client reported supports can also help people increase awareness of warning signs and progress. Client took an active role during the group activity and was more engaged than usual. Appeared to benefit from gaining awareness of barriers that keep people from seeking social support as well as identifying the benefits of increasing support. Progress noted in client?s increased self-awareness. Will continue IOP tx to prevent decompensation of depressive symptoms and improve emotional regulation skills. Narrative Note: []
--- NOTE | 2019-07-24 11:10 | BH.SGPN.GN ---
Behaviors/Verbalizations/Mental Status: []Client alert and oriented, casually dressed and groomed. Eye contact good. Motor activity appropriate. Speech within normal limits. Affect flat, mood depressed. Thoughts linear, logical, no signs of hallucinations or delusions. Client Response/Progress/Benefit: []Client active participant AEB client participating in activity and contributing to discussion at the beginning of session. Client worked with the group to make connections between barriers faced in the challenge activity and strategies for managing these barriers with utilizing social supports in daily life. Client contributed to discussion about the different types of support and benefits different types of support can provide. Client worked with the group to identify strategies for improving development of new supports and better utilization of current supports. Client identified she would like to increase her spiritual support to help client renew her rehana and give client hope. Client shared she wants to find a new temple. Client identified steps she can take to improve this support to be research churches near her, reach out to new people, and learn new coping skills. Client seemed to benefit from identifying a type of support she would like to improve upon and identifying small steps to take. Progress noted in client?s improved engagement during the group activity today. However, client continues to struggle with mood instability and interpersonal relationship issues. Narrative Note: []
--- NOTE | 2019-07-28 13:05 | BH.MDN_ITS ---
Multi-Disciplinary Note - Note 60-min Individual Time Started:: 09:31 Date: 07/28/19 Purpose of session/treatment goals addressed:: The purpose of this session was to assess current symptoms, stressors, and complete midpoint treatment progress review. Another purpose was to assess for risk and safety. Eye Contact:: Fair Motor Activity:: Slowed Appearance:: Casual Speech:: Appropriate Mood:: Irritable, Depressed Affect:: Congruent Thoughts:: Linear, Logical, No evidence of hallucinations/delusions noted Staff Interventions:: Therapist asked open ended and furthering questions to elicit information regarding client current symptoms, stressors, and treatment goal progress. Began review of DSM-5 cross-cutting inventory scores from admission to midpoint review. Provided supportive feedback and empathic responses as client discussed current stressors exacerbating mental health symptoms. Used LA techniques to promote healthy change behaviors and continued to provide education on importance of boundary setting in maintaining self-care. Assessed pt for safety given report of increased Suicidal Ideation. Coordinated plan for high level of care. Client Response:: Client was receptive of meeting with this therapist and re mained engaged throughout session, openly discussing thoughts, feelings, and concerns. Pt shared feeling ?depressed? and went on to indicate ?I?m just down in a hole and I need to do something to get out?. She shared feeling increasingly depressed over the past week and noted being unsure as to what specifically may be contributing to increase in depressive sx. Shared ongoing stress and feeling overwhelmed with the relationship with her daughter which pt reports as toxic. Shared feeling her opinion in often discredited and that she is taken advantage of by her daughter but is unable to say ?no? as she will feel too guilty. Shared experiencing increased suicidal ideation as a result and described this as ?I just want to go to sleep and not wake up?. Shared feeling ?zoned out? and distant emotionally from herself and her supports. Went on to indicate knowing she has not been taking time for herself and that she has not been taking her morning psychiatric medication, [place] 300 mg p.o.; Lexapro 20 mg p.o. daily , and Vistaril, which may be impacting recent increase in symptom severity. Insight that ongoing difficulties in setting boundaries with her daughter, limited application of self-care skills, and difficulties in challenging negative self-talk continues to impact depression as well. Expressed developing a plan to overdose on insulin this morning but was unable to due to not finding a needle to inject herself with. Pt has a hx of chronic SI and often completes wellness checks with her outpatient provider at [facility]; however, outpatient office is currently closed for and therefor pt would be unable to check-in. Shared continued ideation and feeling unsure as to whether she can maintain safety at this time. Has limited supports, unwillingness to plan for safety, and does not have access to a phone to contact support or crisis if needed. Given current risk, lack of concrete protective factors, report of SI with plan and intent pt is recommended inpatient hospitalization at this time. Pt agreeable and willing to be admitted to the Emergency Dept. for further assessment and coordination of care in order for pt to be admitted to inpatient psychiatric facility. Risks/Concerns:: Pt continues to report chronic, passive thoughts of wanting to sleep and not wake up. Reported developing plan to overdose on insulin and denies ability to maintain safety; therefor was admitted to [facility] Emergency Dept. to be further assessed and transferred to higher level of care. Progress Toward Goals/Plan:: Regression noted. Pt and therapist began completion of midpoint progress review and review changes in DSM-5 scores from intake to midpoint review on this date. Overall pt reflected a percent decrease of 24% and 50% reduction in sx of anxiety; however, displays a 50% increase in sx of depression. Reports ongoing interpersonal conflict impacting depression sx and noted that she has been experiencing increased apathy, low motivation, negative thoughts, and suicidal ideation. Pt discussed that she recognizes taking on other's problems and poor boundaries are primary factors contributing to her depression, however continues to struggle in setting and maintaining appropriate boundaries which continues to impact her mental health. Additionally, pt reports limited healthy supports, ongoing use of sleep to avoid stressors, and limited application of healthy coping and distress tollerance skills. Denies engaging in self-care activities or use of positive affirmations despite recognizing potential positive impact these may have on mental health sx and reports that this continues to maintain depression. Expressed increased SI with plan to overdose on insulin this morning. Noted not following through with plan because she could not find a needle to do so. Expressed increased difficulties in maintaining safety. Due to symptom severity, ongoing difficulties in maintaining safety, and increased sx of depression pt is recommended higher level of care at this time. Has been admitted to [facility] Emergency Department for further evaluation and transfer of care to inpatient psychiatric facility. Time Stopped:: 10:36
--- NOTE | 2019-07-28 13:06 | BH.DS_ITS ---
Discharge Summary - Demographics Date of Admission:: 07/01/19 Discharge Date: 07/28/19 Presenting Problems at Admission:: Patient is a 43-year-old female with a history of borderline personality disorder, bipolar disorder, PTSD and ERIKA who was referred by her psychiatrist at [facility] to the [facility] program in behavioral health for increasing suicidal ideation. The patient reports a long history of suicidal ideation, several previous attempts, and ongoing impulse control issues. Reports four psychiatric admits during 2019 with the most recent admit being at [facility] in April 2019. Patient currently lives in an apartment with her daughter and her daughter's boyfriend and reports this is very stressful as they do not pay rent and she does not get along well with her daughter. Reports difficulties in setting boundaries and managing emotions during times of increased conflict. At time of admission, pt endorsing symptoms of depression, isolation, hopelessness, worthlessness, and passive thoughts of going to sleep and not waking up. Additionally, indicated ruminating thoughts, irritability, and mood swings. Pt?s sx impacting her ability to function at baseline, as well as effecting personal, social, and occupational areas. Discharge Diagnoses:: Bipolar 1 disorder, most recent episode depressed, severe without psychosis; generalized anxiety disorder; Borderline Personality Disorder Reason for Discharge:: Client was admitted to [facility] Emergency Department for suicidal ideation and is in need of a higher level of care at this time for mood stability and medication management. Pt will be transferred to inpatient psychiatric facility for more intensive level of care. Due to the nature of client's discharge, client was unable to complete discharge handouts and aftercare planning. - Treatment Progress During Treatment & Response: Client showed some progress during time in IOP as client was able to maintain safety and prevent decompensation for 4 weeks of her time in the IOP program. Recently experiencing regression AEB pt being admitted into higher level of care. Client reported feeling exhausted and overwhelmed most of the day nearly every day as well as feelings of hopelessness. Client stated belief If I can just sleep, I'll feel better, which appeared to hinder client's implementation of healthy coping skills while in the program as she often avoided addressing her primary stressors. Client demonstrated progress with some application of coping skills as she indicated beginning to use deep breathing, reach out to her friend Jo, and communicate with her supports rather than avoid. Although pt improved in willingness to communicate with supports, she often struggled with use of aggressive language which instead further exacerbate conflict in her relationship with her daughter. Client appeared to respond well to treatment as shown by client's consistent attendance and participation in individual and group sessions, as well as ability to maintain safety for 4 weeks while in the program; however struggled with impulse control and consistent application of skills ultimately impacting ability to maintain stability and prevent sx escalation. Issues Still to be Addressed:: Client unable to achieve her treatment goals and therefore could benefit from continued work on mood stability, reduction of avoidant and impulsive behaviors distress tolerance skills, healthy boundary setting, and challenging cognitive distortions. Client gained awareness of maladaptive coping skills such as avoidance, poor boundaries, and late use of emotional regulation. Client could also continue to benefit from utilizing healthy coping skills learned in individual and group sessions to reduce anxiety and depression, manage intrusive thoughts, and reduce depression causing suicidal ideation. Client can continue to benefit from communicating openly with her supports and providers about her warning signs, triggers, and suicidal ideation. There is a concern post discharge that client will continue to rely on avoidance and external factors to reduce her symptoms over utilizing coping skills, which could continue to keep client stuck. Discharge Recommendations/Instructions:: Client was recommended to follow up with outpatient psychiatrist, Dr. Prince, and outpatient therapist, Haylie, as well as Bone Tender, Angella, at [facility]. Client is currently admitted to [facility] E.D. for suicidal ideation and will be transferred to an inpatient psychiatric facility for additional care. Client was informed she can to return to [facility] or [facility] post inpatient discharge should it be an appropriate level of care. Discharge Handout: Complete Discharge Handout with client on aftercare options and continuity of care.
--- NOTE | 2019-08-06 08:28 | BH.COMM ---
Communication Note - Communication with Client Communication Note: This therapist was contacted by the destination imagination coordinator at [facility] regarding pt upcoming discharge from inpatient unit. Therapist informed destination imagination coordinator that pt is welcome to return to [facility] following discharge; however, program transportation will not be available until 09/16/19 and recommended coordinating with pt gearcase assembler at [facility] to secure transportation services. Therapist attempted to contact outpatient therapist and gearcase assembler to update and coordinate care. Unable to reach either and a message was left to follow-up regarding plan of care.
--- NOTE | 2019-08-06 08:28 | BH.COMM_ITS ---
Communication Note - Communication with Client Communication Note: This therapist was contacted by the career development coordinator at [facility] regarding pt upcoming discharge from inpatient unit. Therapist informed career development coordinator that pt is welcome to return to [facility] following discharge; however, program transportation will not be available until 09/16/19 and recommended coordinating with pt showcase maker at [facility] to secure transportation services. Therapist attempted to contact outpatient therapist and showcase maker to update and coordinate care. Unable to reach either and a message was left to follow-up regarding plan of care.
== END 2019-07-28 11:00 | disposition short-term general hospital (02) ==
LOC: BHIOP 09:00
PROVIDERS: Family Provider Internal Medicine; PCP Internal Medicine; Referring Provider Psychiatry & Neurology Psychiatry; Visit Provider Psychiatry & Neurology Psychiatry
DX: F31.4 Bipolar disorder, current episode depressed, severe, without psychotic features (principal); F41.1 Generalized anxiety disorder
CPT/HCPCS: 90792; H0035; H2012; H2020; 90832; 90837

== ENCOUNTER 2019-07-28 10:44 | Emergency (ER) | payer MEDICAID, SELFPAY ==
[2019-07-28 10:45] VITALS: PULSE 101; RESP 17; TEMP 36.6; O2SAT 98; BMI 44.6
[2019-07-28 10:49] VITALS: BP 168/109
--- NOTE | 2019-07-28 11:03 | ED.VISSUMM ---
- ER Visit Summary Date of Service: 07/28/19 Chief Complaint: Depression with suicidal ideation History of Present Illness: The patient is a 43 F who presents with depression and suicidal ideation that has been getting progressively worse over the last 5 days. Patient saw her counselor today who referred to the emergency department. Patient states she has a plan to overdose on insulin. Patient states this has been getting progressively worse but nothing specifically triggered it. Patient has a history of depression and bipolar disorder. Patient states her counselor feels like she needs to be admitted to an inpatient facility. Physical Examination: Vital signs are stable. Patient is afebrile. Patient is in no acute distress. Oral mucosa is pink and moist. Neck is supple. Trachea is midline. There is no JVD noted. Heart was regular rate and rhythm. Lungs are clear and equal bilaterally. Abdomen is soft. Bowel sounds are normal. There is no tenderness. There is no rebound or guarding noted. Skin is warm dry. Cranial nerves II through XII are intact. There are no focal motor or sensory deficits noted. Extremities are intact. There is no calf tenderness or edema. Patient has a flat affect and a depressed mood. Patient admits to suicidal ideation with a plan to overdose on insulin. Test Results: CBC, comprehensive metabolic profile, lithium level, urine tox screen, and serum alcohol level were obtained and were all essentially within normal limits. Emergency Department Course and Treatment: leather production worker was in to evaluate the patient and discussed the case with her counselor. Patient was saying she is remorseful however not having committed suicide yesterday. Patient states she has a plan to go home and commit suicide by overdosing on insulin. leather production worker will be attempting to place the patient in a psychiatric facility. Patient was accepted to [facility]. Patient will be transferred there. Disposition: Transfer to psychiatric facility Impression: Depression with suicidal ideation This note was generated with [employer] dictation software. It may contain incorrect words, spelling, and punctuation that were not noted in review of the chart prior to signing ED Disposition - Plan for ED Patient: Disposition: Psychiatric Hospital or Unit Diagnosis: Depression with suicidal ideation Referrals: Hazel Nagel DO [Primary Care Provider] -
[2019-07-28 11:22] LABS: Amphetamine Urine VISTA NEGATIVE (<1000 ng/mL); Barbiturate Urine VISTA NEGATIVE (< 200 ng/mL); Benzodiazepine Urine VISTA NEGATIVE (< 200 ng/mL); Cocaine Urine VISTA NEGATIVE (< 300 ng/mL); Ecstacy Urine VISTA NEGATIVE (< 500 ng/mL); Methadone Urine VISTA NEGATIVE (< 300 ng/mL); PCP Urine VISTA NEGATIVE (< 25 ng/mL); THC Urine VISTA NEGATIVE (< 50 ng/mL); Vista UDS pH Range 6
[2019-07-28 11:38] LABS: Absolute Neutrophil Count 4.6 X10^3/uL (2.0-7.7); Basophil# 0.03 X10^3/uL; Basophil% 0.5 % (0-1); Eosinophil# 0.18 X10^3/uL; Eosinophils% 2.8 % (0-5); Hematocrit 39.9 % (37-47); Hemoglobin 12.9 g/dL (12.0-15.0); Lymphocyte % 21.5 % (19-41); Mean Corp Hgb Conc 32.3 g/dL (32-36); Mean Corpuscular Hgb 27.9 pg (27.0-32.0); Mean Corpuscular Volume 86.4 fL (81-99); Mean Platelet Vol. 9.8 fl (6.2-12.0); Monocyte# 0.33 X10^3/uL; Monocyte% 5.1 % (0-10); NRBC Flagged by Analyzer 0 % (0-5); Neutrophil # 4.55 X10^3/uL (2.7-7.7); Neutrophil % 69.6 % (47-70); Platelet Count 309 K/mm3 (150-450); RBC Distribution Width CV 13.4 % (11.6-14.6); Red Blood Count 4.62 M/mm3 (4.2-5.4); White Blood Count 6.5 K/mm3 (4.4-11.0)
[2019-07-28 11:50] LABS: Anion Gap 6 (5-15); BUN 9 mg/dL (7-18); BUN/Creat Ratio 12.4 RATIO (10-20); Calcium,Total 8.9 mg/dL (8.5-10.1); Chloride 106 mmol/L (98-107); Creatinine, Serum 0.73 mg/dL (0.55-1.02); EST Glomerular Filtration Rate 92 mL/min (>60); Est Glom Filt Rate - Afr Amer 112 mL/min (>60); Estimated Creatinine Clearance 85.81 ml/min; Glucose 113 mg/dL (74-106); Internal QC Validated? YES +Cl - CLEAR BKGD; Potassium 3.8 mmol/L (3.5-5.1); Pregnancy, Serum, hCG Quali. NEGATIVE Negative; Sodium Level 139 mmol/L (136-145)
[2019-07-28 12:15] LABS: Alcohol, Blood (Medical)-Serum < 3.0 mg/dL
[2019-07-28 12:44] VITALS: RESP 14
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
[2019-07-28 13:17] VITALS: RESP 18
--- NOTE | 2019-07-28 13:40 | CM.ED ---
Social Work Telephone call to [facility]. Referral made. They are familiar with patient from last stay. Will be able to review clinicals. Clinical information faxed. Pending acceptance. Bita SHELBY, ANGELIA
[2019-07-28 13:53] LABS: Bacteria 0 SEEN /hpf (None Seen); Mucous, Urine 0 SEEN /hpf (<or=2+); Red Blood Cells-Urine 0 SEEN /hpf (0-5); White Blood Cells 0 SEEN /hpf (0-5)
[2019-07-28 13:58] LABS: Color, Urine Yellow (Yellow); Glucose, Dipstick Normal (Normal); Ketone-Dipstick Negative (Negative); Leukocyte Esterase-Dipstick Negative /ul (Negative); Nitrite-Dipstick Negative (Negative); Occult Blood-Urine Negative /ul (Negative); Protein-Dipstick Negative (Negative); Urine Bilirubin Dipstick Negative (Negative); Urine Clarity Clear (Clear); Urine Urobilinogen Normal (Normal); Urine pH 6.5 (5.0 - 8.0)
[2019-07-28 14:09] LABS: Squamous Epithelial Cells - UA 0-5 SEEN /hpf (5-10)
--- NOTE | 2019-07-28 14:49 | CM.ED ---
Social Work Telephone call from [facility]: Patient has been accepted. Admitting doctor: Dr. Gutierrez. Nurse to nurse report: [phone]. Patient admitting to [address] unit. Updated doctor, medical team. Attempted to update patient, patient sleeping and did not wake up. [place] faxed to [facility]. [place] to set up transportation. Bita Shah MSW, ANGELIA
--- NOTE | 2019-07-28 15:55 | CM.ED ---
Social Work Patient now awake, was able to update patient that patient will be discharged to [facility], patient is voicing understanding to this. Bita Shah MSW, ANGELIA
[2019-07-28 16:34] VITALS: BP 139/90; PULSE 90; RESP 14; O2SAT 99
[2019-07-28 17:23] VITALS: BP 132/81; PULSE 82; RESP 16; TEMP 36.8; O2SAT 96
== END 2019-07-28 18:10 ==
PROVIDERS: Emergency Provider Emergency Medicine; PCP Internal Medicine
DX: F31.9 Bipolar disorder, unspecified (principal); R45.851 Suicidal ideations; I10 Essential (primary) hypertension; K21.9 Gastro-esophageal reflux disease without esophagitis; E66.9 Obesity, unspecified; Z68.41 Body mass index [BMI] 40.0-44.9, adult
CPT/HCPCS: 36415; 80048; 80178; 80307; 80320; 81001; 84703; 85025; 99284; G0480